=== PATIENT | female | born 1960 | race African-American/Black ===

== ENCOUNTER 2018-08-10 17:09 | Emergency (ER) | payer OTHER, BC ==
[~2018-08-10] VITALS: Ht 160 cm; Wt 117.9 kg
[~2018-08-10 17:09] MED LIST: CELEXA20 MG PO; EXCEDRIN CAPLE1 EACH; FLONASE 0.05%50 MCG; NORCO 5-325 TA1 EACH PO; PREDNISONE 20 M20 MG PO
[2018-08-10] MEDS ORDERED: HYDROCHLOROTH12.5 M1 PO (17:30)
[2018-08-10] MEDS ORDERED: METFORMIN HCL500 MG PO (17:31)
[2018-08-10 18:01] LABS: ABSOLUTE NEUTROPHILS 5.8 thou/uL (1.4-8.2); EOSINOPHILS 2.9 % (0.0-3.0); HEMATOCRIT 35.1 % (37.0-47.0); HEMOGLOBIN 11.6 gm/dL (12.0-15.0); LYMPHOCYTES 31.3 % (24.0-44.0); MCH 26.5 pg (26.0-34.0); MCHC 33.1 g/dL (28.0-37.0); MCV 80.1 fL (80.0-100.0); MONOCYTES 7.2 % (1.0-8.0); PLATELET COUNT 367 thou/uL (150-400); POLYS 57.6 % (36.0-66.0); RBC 4.38 mil/uL (4.20-5.00); RDW 15.6 % (10.5-14.5)
[2018-08-10 18:12] LABS: CALCIUM 9.2 mg/dL (8.5-10.1); CREATININE 1.1 mg/dL (0.6-1.0); POTASSIUM 3.6 mmol/L (3.5-5.1)
[2018-08-10 18:13] LABS: MAGNESIUM 1.7 mg/dL (1.8-2.4)
[2018-08-10] MEDS ORDERED: NAPROSYN500 MG PO (19:41)
[2018-08-10 19:46] VITALS: BP 110/71
== END 2018-08-10 19:50 | disposition home or self-care (01) ==
LOC: ER 17:09
PROVIDERS: Emergency Medicine
DX: G57.12 Meralgia paresthetica, left lower limb (principal); R22.42 Localized swelling, mass and lump, left lower limb

== ENCOUNTER 2021-02-07 09:26 | Emergency (ER) | payer BC, OTHER ==
[~2021-02-07] VITALS: Ht 160 cm; Wt 99.8 kg
[~2021-02-07 09:26] MED LIST changes: +HYDROCHLOROTH12.5 M1 PO; +METFORMIN HCL500 MG PO; +NAPROSYN500 MG PO
[2021-02-07 12:50] VITALS: BP 119/81
[2021-02-07] MEDS ORDERED: NORCO5 PO (12:51)
== END 2021-02-07 13:00 | disposition home or self-care (01) ==
LOC: ER 09:26
DX: M25.552 Pain in left hip (principal); R10.2 Pelvic and perineal pain; Z79.899 Other long term (current) drug therapy